=== PATIENT | female | born 1985 | race Caucasian/White ===

== ENCOUNTER → 2016-08-22 | Outpatient (CLI) | payer OTHER ==
[~2016-08-22] MED LIST: TRANDATE 100MG100 MG PO
[2016-08-22 13:52] VITALS: BP 143/93
== END ==
LOC: AMSURD 13:31
DX: R07.89 Other chest pain (principal)

== ENCOUNTER → 2016-10-22 | Outpatient (CLI) | payer OTHER | LOC: LAB 14:47 | DX: R50.9 Fever, unspecified (principal); R53.81 Other malaise; M54.2 Cervicalgia ==

== ENCOUNTER → 2017-03-02 | Outpatient (CLI) | payer OTHER ==
[2016-08-22 13:52] VITALS: BP 143/93
== END ==
LOC: LAB 08:42
DX: R50.81 Fever presenting with conditions classified elsewhere (principal)

== ENCOUNTER 2017-06-26 15:30 | Outpatient (RCR) | payer OTHER ==
[2016-08-22 13:52] VITALS: BP 143/93
== END 2017-06-26 16:00 | disposition home or self-care (01) ==
LOC: PT 15:30
DX: R29.898 Other symptoms and signs involving the musculoskeletal system (principal)

== ENCOUNTER → 2017-10-22 | Outpatient (CLI) | payer OTHER ==
[2016-08-22 13:52] VITALS: BP 143/93
== END ==
LOC: EDBD 12:45 → RAD 12:45
DX: N63.20 Unspecified lump in the left breast, unspecified quadrant (principal); N60.01 Solitary cyst of right breast